=== PATIENT | female | born 1940 | race Caucasian/White ===

== ENCOUNTER 2016-11-03 12:51 | Day surgery (SDC) | payer MEDICARE ==
[~2016-11-03] VITALS: Ht 170.2 cm; Wt 81.0 kg
[~2016-11-03 12:51] MED LIST: FLUT9.9S NS; Sodium Chloride LOK Flush 10 mL Syringe IV PRN; fentaNYL-PF 50 mCg/mL 2 mL Inj IVPUSH PRN
[2016-11-03 13:46] VITALS: BP 175/91; PULSE 76; RESP 16; O2SAT 96
[2016-11-03] MEDS ORDERED: MAG355OR17 PO (13:46)
[2016-11-03] MEDS: 0.9% Sodium Chloride 1,000 ML IV SCH ×2 (14:19→14:26)
--- NOTE | 2016-11-03 14:52 | PCM.ENDCOL ---
Colonoscopy Date of Service: November 03, 2016 Physician Duke Bernstein MD Pre Procedure Diagnosis: Screening Post Procedure Dx & Findings: Polyp hemorrhoids and diverticula Procedure Colonoscopy PROCEDURE IN DETAIL: Prep adequate Withdrawal time 23 minutes After unremarkable rectal examination the Olympus video colonoscope was inserted patient's anal canal and was advanced to cecum. Landmarks were identified including the ileocecal valve and appendiceal orifice. Scope was withdrawn systematically. Visualized colonic mucosa showed healthy shiny mucosa with normal healthy-appearing vasculature. In the ascending colon, there was a 1 mm polyp which was removed completely using cold forceps. In the sigmoid colon there were 2 polyps. These were about 2 mm in size and they were both removed completely using cold snare. In the rectosigmoid junction, there is one and a half centimeter flat polyp. This was removed completely using hot snare. Narrow banding. Healed tubulovillous pattern. Margins are clean. 3 clips deployed because of a small vessel was noted. The defect completely sealed off. 1 mL Fannie ink deployed. Patient had several small diverticula in the sigmoid colon In the rectum retroflexion was done which showed hemorrhoids. Anal canal was inspected carefully on the way out and hemorrhoids noted. Impression Polyp 4. Largest was about 1-1/2 cm with tubulovillous pattern. All polyps were completely removed Diverticuli Hemorrhoids Recommendation Repeat colonoscopy 3 years Flexible sigmoidoscopy 6-12 month Diverticular diet Presedation Assessment Risks and Benefits Informed consent was obtained from the patient after all risks and benefits including but not limited to drug reaction, infection, pain, bleeding, perforation, as well as alternatives were discussed. Patient monitoring Continuous pulse oximetry, cardiac monitoring, blood pressure monitoring, IV access, and oxygen at 2L per nasal cannula. Periprocedural Fentanyl: Fentanyl 75mcg Incrementally Midazolam: Midazolam 4mg Incrementally Complications There were no periprocedural complications identified. Post Procedure Plan Post Procedure Recommendations 1. Restrict activities today. 2. Resume normal activities in the morning. 3. Resume medications. 4. Patient informed of normal post procedure side effects as bloating, drowsiness, blood streaking in the stool. 5. average risk CRCS. If colon polyps come back as: -Hyperplastic- can repeat colonoscopy in 10 years -Tubular adenoma- repeat colonoscopy in 5 years -Tubulovillous/villous adenoma- repeat colonoscopy in 3 years -If any dysplasia- return to clinic as soon as possible 6. Please don't hesitate to call me with any questions. Duke Bernstein MD November 03, 2016 14:52
[2016-11-03 14:54] VITALS: BP 150/70; PULSE 64; RESP 14; O2SAT 98
[2016-11-03 15:04] VITALS: BP 142/70; PULSE 64; RESP 16; O2SAT 96
[2016-11-03 15:12] VITALS: BP 155/79; PULSE 65; RESP 14; O2SAT 94
--- NOTE | 2016-11-05 13:42 | PATH ---
SURGICAL PATHOLOGY Attending Physician:Duke Bernstein M.D. CASE STATUS: Signed Out PATIENT NAME: CAYETANO KAPADIA PID: [id number] : 1940 DATE COLLECTED:11/03/2016 00:00 SPECIMEN: 1: Colon, Biopsy 2: Colon, Biopsy 3: Rectum, Biopsy CLINICAL HISTORY: 1). ASCENDING COLON POLYP 2). SIGMOID COLON POLYP 3). RECTAL POLYP FINAL DIAGNOSIS: 1.ASCENDING COLON POLYP: TUBULAR ADENOMA. 2.SIGMOID COLON POLYP: TUBULAR ADENOMA INVOLVING SINGLE BIOPSY FRAGMENT. 3.RECTAL POLYP: SERRATED ADENOMA, TRADITIONAL TYPE (SEE COMMENT). [id number] NOTE: The serrated adenoma, traditional type present in part 3 should be treated like an adenoma with shortened surveillance and complete removal. As part of a routine lead quality control technician, Dr. Stephanie Javier has also reviewed part 3 of this case and agrees with the diagnosis. GROSS DESCRIPTION: The specimen is received in three formalin filled containers labeled with the patient's name. 1). The specimen is sublabeled "ascending colon polyp" and consists of a 0.4 x 0.2 x 0.1 CM portion of tissue which is entirely submitted in cassette 1A. 2). The specimen is sublabeled "sigmoid colon polyp" and consists of 2 portions of tissue which aggregate to 0.3 x 0.3 x 0.2 CM. The specimen is entirely submitted in cassette 2A. 3). The specimen is sublabeled "rectal polyp" and consists of a 0.9 x 0.6 x 0.5 CM portion of tissue. The specimen is trisected and entirely submitted in cassette 3A. 11/04/2016 [facility] MICRO DESCRIPTION: See diagnosis. ICD-9 CODES: CPT CODES: 1: 22490 2: 23262 3: 38298 Electronically Signed Out Tristin Johnson MD [facility] Pathology [facility] [address] [facility], [place] [address] Technical component performed at [facility], [facility] [address], [place], [address]
== END 2016-11-03 23:59 | disposition home or self-care (01) ==
LOC: END 12:51
PROVIDERS: ATTEND Internal Medicine
DX: Z12.11 Encounter for screening for malignant neoplasm of colon (principal); D12.2 Benign neoplasm of ascending colon; D12.5 Benign neoplasm of sigmoid colon; D12.8 Benign neoplasm of rectum; K57.30 Diverticulosis of large intestine without perforation or abscess without bleeding; K64.9 Unspecified hemorrhoids; R03.0 Elevated blood-pressure reading, without diagnosis of hypertension; M94.0 Chondrocostal junction syndrome [Tietze]; J45.20 Mild intermittent asthma, uncomplicated
CPT/HCPCS: 45380; 45381; 45385; 99153; G0500; J2250; J3010; J7030